=== PATIENT | female | born 1950 | race Asian ===

== ENCOUNTER → 2016-12-17 | Outpatient (CLI) | payer MEDICARE, OTHER ==
[~2016-12-17] VITALS: Ht 149.9 cm; Wt 36.8 kg
[~2016-12-17] MED LIST: BENZ-51 PO; CETI-290 PO; FLUT110HFA IH; HYD25 PO; MONT10TA21 PO; TIOT185 IH
[2016-12-17 11:03] VITALS: BP 108/67
== END | disposition home or self-care (01) ==
LOC: SRCNTR 10:48
PROVIDERS: ATTEND Internal Medicine Critical Care Medicine
DX: R91.1 Solitary pulmonary nodule (principal); E78.5 Hyperlipidemia, unspecified; F17.210 Nicotine dependence, cigarettes, uncomplicated; Z86.73 Personal history of transient ischemic attack (TIA), and cerebral infarction without residual deficits; Z85.118 Personal history of other malignant neoplasm of bronchus and lung; Z90.49 Acquired absence of other specified parts of digestive tract
CPT/HCPCS: G0463

== ENCOUNTER → 2016-12-25 | Outpatient (CLI) | payer MEDICARE, OTHER | END | disposition home or self-care (01) | LOC: RADPV 08:33 | PROVIDERS: ATTEND Internal Medicine | DX: I50.30 Unspecified diastolic (congestive) heart failure (principal); R94.31 Abnormal electrocardiogram [ECG] [EKG]; C34.90 Malignant neoplasm of unspecified part of unspecified bronchus or lung | CPT/HCPCS: 93306 ==

== ENCOUNTER → 2017-01-02 | Outpatient (CLI) | payer MEDICARE, OTHER | END | disposition home or self-care (01) | LOC: RESP 09:06 | PROVIDERS: ATTEND Internal Medicine Critical Care Medicine | DX: J44.9 Chronic obstructive pulmonary disease, unspecified (principal) | CPT/HCPCS: 94010; 94726; 94727; 94729 ==

== ENCOUNTER → 2017-02-28 | Outpatient (CLI) | payer MEDICARE, OTHER ==
[~2017-02-28] VITALS: Ht 124.5 cm; Wt 37.5 kg
[2017-02-28 12:11] VITALS: BP 93/54
== END | disposition home or self-care (01) ==
LOC: SRCNTR 11:52
PROVIDERS: ATTEND Internal Medicine Critical Care Medicine
DX: R91.1 Solitary pulmonary nodule (principal); J44.9 Chronic obstructive pulmonary disease, unspecified; I48.91 Unspecified atrial fibrillation; Z85.118 Personal history of other malignant neoplasm of bronchus and lung; Z86.73 Personal history of transient ischemic attack (TIA), and cerebral infarction without residual deficits
CPT/HCPCS: G0463

== ENCOUNTER → 2017-07-09 | Outpatient (CLI) | payer MEDICARE, OTHER ==
[~2017-07-09] VITALS: Ht 149.9 cm; Wt 39.5 kg
[~2017-07-09] MED LIST changes: -FLUT110HFA IH
[2017-07-09 13:34] VITALS: BP 101/66
== END | disposition home or self-care (01) ==
LOC: SRCNTR 12:54
PROVIDERS: ATTEND Internal Medicine Critical Care Medicine
DX: J44.9 Chronic obstructive pulmonary disease, unspecified (principal); R91.1 Solitary pulmonary nodule; E78.5 Hyperlipidemia, unspecified; R76.11 Nonspecific reaction to tuberculin skin test without active tuberculosis; Z86.73 Personal history of transient ischemic attack (TIA), and cerebral infarction without residual deficits
CPT/HCPCS: G0463